=== PATIENT | female | born 1935 | race Caucasian/White ===

== ENCOUNTER 2016-11-30 21:27 | Emergency (ER) | payer MEDICARE, BC ==
[2016-11-30] MEDS ORDERED: Acetaminophen/oxyCODONE 325-5 MG Tab PO ONE ×2 (21:43→21:48)
--- NOTE | 2016-11-30 21:58 | EDM.PDOC ---
ED HPI GENERAL MEDICAL PROBLEM - General Chief Complaint: Upper Extremity Injury/Pain Stated Complaint: PAIN RT WRIST Time Seen by Provider: 11/30/16 21:40 Source of Information: Reports: Patient History Limitations: Reports: No Limitations - History of Present Illness INITIAL COMMENTS - FREE TEXT/NARRATIVE: 81 yo female was seen in the clinic today for an injured wrist. Her initial interpretation was that no fx was seen. She was fitted with a splint and asked to use her tramadol for pain relief. She called back later to tell them she was still in pain, but nothing stronger was given. She now presents due to this pain. Has not used any acetaminophen or ibuprofen since the injury. 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(s), Other (see below) (tramadol) - Related Data Allergies Allergy/AdvReac Type Severity Reaction Status Date / Time aspirin Allergy Cannot Verified 03/05/16 03:00 Remember levofloxacin [From Levaquin] Allergy Cannot Verified 03/05/16 03:00 Remember naproxen [From Naprosyn] Allergy Cannot Verified 03/05/16 03:00 Remember Penicillins Allergy Cannot Verified 03/05/16 03:00 Remember Home Meds: Home Meds Allopurinol [Zyloprim] 300 mg PO DAILY PRN 10/15/13 [History] Furosemide [Lasix] 40 mg PO DAILY 10/15/13 [History] Metoprolol Tartrate [Lopressor] 50 mg PO DAILY 10/15/13 [History] Polyethylene Glycol 3350 [MiraLAX] 17 gm PO DAILY PRN 08/27/14 [History] amLODIPine [Norvasc] 2.5 mg PO DAILY 08/27/14 [History] metFORMIN [Glucophage] 500 mg PO BIDMEALS 08/27/14 [History] traMADol [Ultram] 50 mg PO Q4H PRN 08/27/14 [History] Calcium Carbonate/Vitamin D3 [Oyster Shell 500-Vit D3 200 Tb] 1 tab PO BIDMEALS 03/05/16 [History] Liothyronine [Cytomel] 25 mcg PO BID@03/05/16 [History] Past Medical History HEENT History: Reports: Cataract, Impaired Vision, Sinusitis Cardiovascular History: Reports: Heart Failure, Hypertension, SOB on Exertion Respiratory History: Reports: Bronchitis, Recurrent, SOB Gastrointestinal History: Reports: Cholelithiasis Genitourinary History: Reports: Other (See Below) Other Genitourinary History: 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 Musculoskeletal History: Reports: Back Pain, Chronic, Gout, Osteoarthritis, Osteoporosis Endocrine/Metabolic History: Reports: Diabetes, Type II, Obesity/BMI 30+, Osteoporosis Hematologic History: Reports: Iron Deficiency Oncologic (Cancer) History: Reports: Renal, Thyroid Dermatologic History: Reports: Other (See Below) Other Dermatologic History: reddened rashy area to right ankle area - Infectious Disease History Infectious Disease History: Reports: Chicken Pox, Measles, Mumps - Past Surgical History HEENT Surgical History: Reports: Cataract Surgery, Tonsillectomy Musculoskeletal Surgical History: Reports: Arthroscopic Knee Oncologic Surgical History: Reports: Other (See Below) Social & Family History - Family History Cardiac: Reports: Hypertension, [place] Musculoskeletal: Reports: Arthritis, Gout Endocrine/Metabolic: Reports: Diabetes, type II Hematologic: Reports: None Oncologic: Reports: Colon, Pancreatic - Tobacco Use Smoking Status *Q: Never Smoker Second Hand Smoke Exposure: No - Caffeine Use Caffeine Use: Reports: None - Alcohol Use Days Per Week of Alcohol Use: 0 - Recreational Drug Use Recreational Drug Use: No - Living Situation & Occupation Living situation: Reports: Alone Review of Systems - Review of Systems Review Of Systems: See Below Constitutional: Reports: No Symptoms Musculoskeletal: Reports: Joint Pain (R wrist) Skin: Reports: No Symptoms Neurological: Reports: No Symptoms Psychiatric: Reports: No Symptoms ED EXAM, GENERAL - Physical Exam Exam: See Below Exam Limited By: No Limitations General Appearance: Alert, WD/WN, No Apparent Distress, Obese Ears: Normal External Exam, Hearing Grossly Normal Ear Exam: Bilateral Ear: Auricle Normal Nose: Normal Inspection Throat/Mouth: Normal Voice, No Airway Compromise Head: Atraumatic, Normocephalic Neck: Normal Inspection, Supple Respiratory/Chest: No Respiratory Distress Cardiovascular: Regular Rate, Rhythm GI/Abdominal: Soft, No Distention Extremities: Normal Inspection, Other (Thumb spica wrist splint in place on R. ) Neurological: Alert, Oriented, No Motor/Sensory Deficits Psychiatric: Normal Affect, Normal Mood Skin Exam: Warm, Dry, Intact, Normal Color, No Rash Course - Vital Signs Text/Narrative:: Percocet 1 po - Orders/Labs/Meds Meds: Medications Discontinued Medications Generic Name Dose Route Start Last Admin Trade Name Nilam PRN Reason Stop Dose Admin Oxycodone/Acetaminophen 1 tab 11/30/16 21:43 11/30/16 21:46 Percocet 325-5 Mg PO 11/30/16 21:44 1 tab ONETIME ONE Administration Departure - Departure Time of Disposition: 22:01 Disposition: Home, Self-Care 01 Condition: Fair Clinical Impression: Wrist pain, acute Qualifiers: Laterality: right Qualified Code(s): M25.531 - Pain in right wrist - Discharge Information Instructions: Wrist Sprain Referrals: Sindy Bergeron NP [Primary Care Provider] - Care Plan Goals: Percocet 1 every 4 hrs or 2 every 6 hrs as needed. Add ibuprofen 400 mg every 6 hrs with food for added relief. Elevate and use your splint at all times. Recheck with the clinic tomorrow.
[2016-11-30 22:03] VITALS: BP 139/73
== END 2016-11-30 22:10 | disposition home or self-care (01) ==
LOC: FB.ED 21:27
DX: M25.531 Pain in right wrist (principal); I11.0 Hypertensive heart disease with heart failure; I50.9 Heart failure, unspecified; M19.90 Unspecified osteoarthritis, unspecified site; M81.0 Age-related osteoporosis without current pathological fracture; E11.9 Type 2 diabetes mellitus without complications; E66.9 Obesity, unspecified; Z86.79 Personal history of other diseases of the circulatory system; Z88.1 Allergy status to other antibiotic agents; Z88.5 Allergy status to narcotic agent; Z88.0 Allergy status to penicillin; Z79.84 Long term (current) use of oral hypoglycemic drugs; Z79.899 Other long term (current) drug therapy; Z90.89 Acquired absence of other organs; Z98.49 Cataract extraction status, unspecified eye
CPT/HCPCS: 99283; A9270

== ENCOUNTER 2017-05-27 08:08 | Day surgery (SDC) | payer MEDICARE, BC ==
[2017-05-27] MEDS ORDERED: Lactated Ringers 1,000 ML IV SCH (08:15)
[2017-05-27] MEDS ORDERED: Lactated Ringers 1,000 ML IV ONE (10:30)
[2017-05-27] MEDS ORDERED: Midazolam 1 MG/ML 2 ML SDV IV ONE (10:30)
[2017-05-27] MEDS ORDERED: Lidocaine 2% 100 MG/5 ML Syringe IVPUSH ONE (10:30)
[2017-05-27] MEDS ORDERED: Propofol 200 MG/20 ML SDV IV ONE (10:30)
--- NOTE | 2017-05-27 11:54 | PCM.OPNOTE ---
- General Post-Op/Procedure Note Date of Surgery/Procedure: 05/27/17 Operative Procedure(s): egd with bx. c scope with bx Findings: gastric polyp esophagitis cecal polyps [id number] colon polyp x3, transverse colon polyp x2 Pre Op Diagnosis: anemia Post-Op Diagnosis: gastric polyp. esophagitis. cecal polyps [id number] colon polyp x3, transverse colon polyp x2 Anesthesia Technique: MAC Primary Surgeon: Adalberto Izquierdo Anesthesia Provider: Gisselle Jenkins Pathology: gastric polyp esophagitis cecal polyps [id number] colon polyp x3, transverse colon polyp x2 Complications: None Condition: Good Free Text/Narrative:: see dictation
[2017-05-27 13:40] VITALS: BP 158/48
--- NOTE | 2017-05-27 14:58 | OR ---
DATE OF OPERATION: 05/27/2017 SURGEON: Adalberto Izquierdo MD PROCEDURES PERFORMED: Upper endoscopy with cold forceps biopsy and colonoscopy with hot loop snare biopsy. PREOPERATIVE DIAGNOSIS: Anemia, iron deficiency. POSTOPERATIVE DIAGNOSES: Gastric polyp, esophagitis, cecal polyp x3, ascending colon polyps x3 and transverse colon polyps x2. INDICATIONS FOR PROCEDURE: This is an 81-year-old white female who is completely asymptomatic, but was referred with the above-mentioned complaint of anemia. She was offered and accepted an EGD as part of her workup. DESCRIPTION OF OPERATION: After an excellent IV sedation was administered, the bite block was inserted. The flexible endoscope was passed without difficulty down the patient's esophagus into the stomach. The stomach was insufflated. Scope was passed through the pylorus to the second portion of the duodenum and slowly withdrawn. The following findings were noted. Duodenum was unremarkable. In the stomach, a polyp was encountered. This was biopsied with the cold forceps biopsies and sent for permanent. Distal esophagus demonstrated esophagitis and biopsies were taken of this area. This just involved the distal 1-2 cm above the GE junction. The remainder of the esophageal exam was unremarkable. Attention was then turned to the colon. Digital rectal exam was performed. The flexible colonoscope was inserted and advanced to the cecum. The following findings were noted. The prep was good. In cecum, 3 polyps, biopsied with the loop snare using combination of cold and hot biopsies and submitted in one container. Ascending colon, 3 polyps were encountered within 2 - 3 cm of each other and these were biopsied with hot loop snare and sent for permanent, submitted in one container. Transverse colon, total of 2 polyps were encountered. This was at the proximal transverse colon. These were biopsied with the hot loop snare and submitted in one container as well. The descending colon was unremarkable. Sigmoid was unremarkable. Rectum and anus were unremarkable. The colon was deflated and the scope was removed. The patient tolerated the procedure well and was taken to recovery room in good condition. /[id number] /MODL MTDD
== END 2017-05-27 13:07 | disposition home or self-care (01) ==
LOC: FB.SDS 08:08
PROVIDERS: ATTEND Surgery
DX: D12.0 Benign neoplasm of cecum (principal); D12.2 Benign neoplasm of ascending colon; D12.3 Benign neoplasm of transverse colon; K20.9 Esophagitis, unspecified; K31.7 Polyp of stomach and duodenum; E11.22 Type 2 diabetes mellitus with diabetic chronic kidney disease; E11.622 Type 2 diabetes mellitus with other skin ulcer; I12.9 Hypertensive chronic kidney disease with stage 1 through stage 4 chronic kidney disease, or unspecified chronic kidney disease; N18.9 Chronic kidney disease, unspecified; Z88.1 Allergy status to other antibiotic agents; Z88.8 Allergy status to other drugs, medicaments and biological substances; Z88.0 Allergy status to penicillin; Z79.84 Long term (current) use of oral hypoglycemic drugs; Z79.899 Other long term (current) drug therapy; E78.5 Hyperlipidemia, unspecified; Z90.5 Acquired absence of kidney
CPT/HCPCS: 00731-QZ; 82962; 88305; 88313; 88342; J2250; J2704; J7120

== ENCOUNTER 2017-10-29 11:08 | Emergency (ER) | payer MEDICARE, BC ==
[2017-10-29] MEDS ORDERED: Acetaminophen/oxyCODONE 325-5 MG Tab PO STA (11:49)
--- NOTE | 2017-10-29 11:50 | EDM.PDOC ---
ED HPI GENERAL MEDICAL PROBLEM - General Chief Complaint: Lower Extremity Injury/Pain Stated Complaint: RT SIDE BACK PAIN Time Seen by Provider: 10/29/17 11:10 Source of Information: Reports: Patient, Family History Limitations: Reports: Physical Impairment - History of Present Illness INITIAL COMMENTS - FREE TEXT/NARRATIVE: 82 y.o.w. f came with her sister in [place] to the [place] due to low back pain, no trauma. Pt was seen in [place] for same and was told, surgery would not benefit her. Pt came today because the pain got worse. She denied stool or urine incontinence. Pt lives by herself, but can so far manage it to take care for herself. Pt took tylenol without help. Pt did, not take her meds today. No N/V/ D or dizziness or any other acute medical issues. BP 182/71 RR 20 Pulse ox 100 % HR 62 temp 36.8 Onset Date: 09/29/17 Onset Time: 07:00 Duration: Day(s):, Getting Worse, Intermittent Location: Reports: Back Quality: Reports: Burning, Dull, Pressure, Same as Previous Episode, Throbbing Severity: Moderate Improves with: Reports: Cold Therapy, Medication Worsens with: Reports: Movement Context: Reports: Other (chronic low back pain) Associated Symptoms: Reports: No Other Symptoms Right Hip Pain Score (Numeric/FACES): 6 - Related Data Allergies Allergy/AdvReac Type Severity Reaction Status Date / Time aspirin Allergy Cannot Verified 10/29/17 11:16 Remember levofloxacin [From Levaquin] Allergy Cannot Verified 10/29/17 11:16 Remember naproxen [From Naprosyn] Allergy Cannot Verified 10/29/17 11:16 Remember Penicillins Allergy Cannot Verified 10/29/17 11:16 Remember Home Meds: Home Meds Allopurinol [Zyloprim] 300 mg PO DAILY 10/15/13 [History] Furosemide [Lasix] 40 mg PO DAILY 10/15/13 [History] Metoprolol Tartrate [Lopressor] 50 mg PO DAILY 10/15/13 [History] amLODIPine [Norvasc] 2.5 mg PO DAILY 08/27/14 [History] metFORMIN [Glucophage] 500 mg PO BIDMEALS 08/27/14 [History] Calcium Carbonate/Vitamin D3 [Oyster Shell 500-Vit D3 200 Tb] 1 tab PO DAILY 03/10 [History] Ferrous Sulfate 325 mg PO BID 05/26/17 [History] Levothyroxine 150 mcg PO ASDIRECTED 05/26/17 [History] Levothyroxine 300 mcg PO NG 05/26/17 [History] Acetaminophen/oxyCODONE [Percocet 325-5 MG] 1 each PO Q6HR PRN #16 tab 10/29/17 [Rx] Past Medical History HEENT History: Reports: Cataract, Impaired Vision, Sinusitis, Other (See Below) Other HEENT History: NASAL POLYPS Cardiovascular History: Reports: Heart Failure, High Cholesterol, Hypertension, SOB on Exertion, Other (See Below) Other Cardiovascular History: VARICOSE VEINS, LYMPHEDEMA, DV THROMBOEMBOLISM, VEIN LIGATION STRIPPING OF RIGHT LASER BILATERAL Respiratory History: Reports: Bronchitis, Recurrent, SOB Gastrointestinal History: Reports: Cholelithiasis, Gastritis, Other (See Below) Other Gastrointestinal History: GASTRIC ULCER Genitourinary History: Reports: Renal Disease, Other (See Below) Other Genitourinary History: 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 Musculoskeletal History: Reports: Back Pain, Chronic, Fracture, Gout, Osteoarthritis, Osteoporosis Other Musculoskeletal History: UNCSPECIFIED CLOSED FX OF LEFT FOREARM Neurological History: Reports: None Endocrine/Metabolic History: Reports: Diabetes, Type II, Obesity/BMI 30+, Osteoporosis Hematologic History: Reports: Iron Deficiency Oncologic (Cancer) History: Reports: Renal, Thyroid Dermatologic History: Reports: Other (See Below) Other Dermatologic History: reddened rashy area to right ankle area - Infectious Disease History Infectious Disease History: Reports: Chicken Pox, Influenza, Measles, Mumps, Rubella - Past Surgical History HEENT Surgical History: Reports: Cataract Surgery, Tonsillectomy GI Surgical History: Reports: Appendectomy, Cholecystectomy, Colonoscopy, Hernia Repair/Other Other GI Surgeries/Procedures: UMBILICAL HERNIORRAPHY Female Surgical History: Reports: Hysterectomy, Nephrectomy, Oophorectomy Other Female Surgeries/Procedures: LEFT LAP NEPHRECTOMY 2014 Endocrine Surgical History: Reports: Parathyroidectomy Musculoskeletal Surgical History: Reports: Arthroscopic Knee Oncologic Surgical History: Reports: Other (See Below) Other Oncologic Surgeries/Procedures: left kidney and thyroid Dermatological Surgical History: Reports: None Social & Family History - Family History Family Medical History: Noncontributory Cardiac: Reports: Hypertension, [place] Musculoskeletal: Reports: Arthritis, Gout Endocrine/Metabolic: Reports: Diabetes, type II Hematologic: Reports: None Oncologic: Reports: Colon, Pancreatic - Tobacco Use Smoking Status *Q: Never Smoker Second Hand Smoke Exposure: No - Caffeine Use Caffeine Use: Reports: Soda Caffeine Use Comment: Occasional pop - Recreational Drug Use Recreational Drug Use: No - Living Situation & Occupation Living situation: Reports: Alone Review of Systems - Review of Systems Review Of Systems: See Below Constitutional: Reports: No Symptoms Eyes: Reports: No Symptoms Ears: Reports: No Symptoms Nose: Reports: No Symptoms Mouth/Throat: Reports: No Symptoms Respiratory: Reports: No Symptoms Cardiovascular: Reports: No Symptoms GI/Abdominal: Reports: No Symptoms Genitourinary: Reports: No Symptoms Musculoskeletal: Reports: Back Pain Skin: Reports: No Symptoms Neurological: Reports: No Symptoms Psychiatric: Reports: No Symptoms ED EXAM, GENERAL - Physical Exam Exam: See Below Exam Limited By: Physical Impairment General Appearance: Alert, Mild Distress, Obese (morbid) Eye Exam: Bilateral Eye: Normal Inspection Ears: Normal External Exam Ear Exam: Bilateral Ear: Auricle Normal Nose: Normal Inspection, Normal Mucosa Throat/Mouth: Normal Inspection, Normal Lips, Normal Voice, No Airway Compromise Head: Atraumatic, Normocephalic Neck: Normal Inspection, Supple, Non-Tender, Full Range of Motion Respiratory/Chest: No Respiratory Distress Cardiovascular: Normal Peripheral Pulses, Regular Rate, Rhythm Peripheral Pulses: 1+: Carotid (R) GI/Abdominal: Normal Bowel Sounds, Soft, Non-Tender, No Organomegaly, No Mass (Female) Exam: Deferred Rectal (Female) Exam: Deferred Back Exam: Normal Inspection, Decreased Range of Motion Extremities: Normal Inspection, Normal Range of Motion Neurological: Alert, Oriented, CN II-XII Intact, Normal Cognition, Abnormal Gait (due to low back pain) Psychiatric: Normal Affect, Normal Mood Skin Exam: Warm, Dry, Intact, Normal Color, No Rash Lymphatic: No Adenopathy Course - Vital Signs Text/Narrative:: 82 y.o.w. f came with her sister in [facility] to the ed due to low back pain, no trauma. Pt was seen in [place] for same and was told, surgery would not benefit her. Pt came today because the pain got worse. She denied stool or urine incontinence. Pt lives by herself, but can so far manage it to take care for herself. Pt took tylenol without help. Pt did, not take her meds today. No N/V/ D or dizziness or any other acute medical issues. BP 182/71 RR 20 Pulse ox 100 % HR 62 temp 36.8 PE: Morbid obes 82 y.o.w.f with low back pain Imaging: Multilevel spondylosis Impression: Multilevel spondylosis, Chronic low back pain, HTN, Noncompliance with meds. Tx: Ice, Percocet, clonidine Reexam: Pain improved, BP was 155/84 on D/C Plan: D/C with instructions Last Recorded V/S: Last Vital Signs Temp 36.6 C 10/29/17 15:17 Pulse 62 10/29/17 15:45 Resp 18 10/29/17 15:45 BP 155/67 H 10/29/17 15:45 Pulse Ox 100 10/29/17 15:45 - Orders/Labs/Meds Orders: Active Orders 24 hr Category Date Time Status Cooling Warming Measures [RC] ASDIRECTED Care 10/29/17 11:45 Active Hip Min 2V or 3V w Pelvis Rt [CR] Stat Exams 10/29/17 12:11 Taken Lumbar Spine 2 or 3V [CR] Stat Exams 10/29/17 12:11 Taken Lumbar Spine wo Cont [CT] Stat Exams 10/29/17 12:46 Taken Ice Bag [Ice Therapy] [OM.PC] Routine Oth 10/29/17 11:45 Ordered Meds: Medications Discontinued Medications Generic Name Dose Route Start Last Admin Trade Name Freq PRN Reason Stop Dose Admin Clonidine HCl 0.1 mg 10/29/17 15:28 10/29/17 15:32 Catapres PO 10/29/17 15:29 0.1 mg ONETIME ONE Administration Oxycodone/Acetaminophen 1 tab 10/29/17 11:49 10/29/17 12:39 Percocet 325-5 Mg PO 10/29/17 11:50 1 tab ONETIME STA Administration Departure - Departure Time of Disposition: 15:04 Disposition: Home, Self-Care 01 Condition: Good Clinical Impression: Back pain at L4-L5 level Spondylosis Qualifiers: Spinal osteoarthritis complication: without myelopathy or radiculopathy - Discharge Information Prescriptions: Acetaminophen/oxyCODONE [Percocet 325-5 MG] 1 each PO Q6HR PRN #16 tab PRN Reason: for severe pain only Instructions: Hip Pain, Acetaminophen; Oxycodone tablets Referrals: Sindy Bergeron NP [Primary Care Provider] - Eladio Argueta DO [Physician] - Forms: ED Department Discharge Additional Instructions: Please apply ice to lower back, please take the pain meds as recommended, please f/u with Dr. Argueta this week, please come back if your symptoms get worse acutely - My Orders Last 24 Hours: My Active Orders 10/29/17 11:45 Cooling Warming Measures [RC] ASDIRECTED Ice Bag [Ice Therapy] [OM.PC] Routine 10/29/17 12:11 Hip Min 2V or 3V w Pelvis Rt [CR] Stat Lumbar Spine 2 or 3V [CR] Stat 10/29/17 12:46 Lumbar Spine wo Cont [CT] Stat - Assessment/Plan Last 24 Hours: My Active Orders 10/29/17 11:45 Cooling Warming Measures [RC] ASDIRECTED Ice Bag [Ice Therapy] [OM.PC] Routine 10/29/17 12:11 Hip Min 2V or 3V w Pelvis Rt [CR] Stat Lumbar Spine 2 or 3V [CR] Stat 10/29/17 12:46 Lumbar Spine wo Cont [CT] Stat
[2017-10-29] MEDS ORDERED: Acetaminophen/oxyCODONE 325-5 MG Tab PO ONE (15:11)
[2017-10-29] MEDS ORDERED: cloNIDine 0.1 MG Tab PO ONE (15:28)
[2017-10-29 15:51] VITALS: BP 155/67
--- NOTE | 2017-10-31 13:34 | CR ---
INDICATION: Low back pain radiating to right hip. PELVIS WITH RIGHT HIP: Frontal view of the pelvis with frontal and lateral views of the right hip were obtained 10/29/2017 and revealed degenerative changes at the sacroiliac joints. The hip joints show only minimal degenerative changes with the joint spaces fairly well preserved and symmetrical bilaterally. No evidence of a fracture or dislocation was identified. IMPRESSION: 1. Very minimal osteoarthritis hip joints bilaterally. 2. Osteoarthritis sacroiliac joints. MTDD
--- NOTE | 2017-10-31 13:39 | CR ---
INDICATION: Low back pain. 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 Demineralization is noted, compatible with osteoporosis. Degenerative disk disease with narrowing of the disk space is suggested at L3-4 , disk disease suggested at L4-5 with grade 1 anterolisthesis at that level. Disk disease is also suggested due to narrowing at the L4-5 level. Hypertrophic degenerative changes are noted in the thoracolumbar spine and to the level of L2 anteriorly off vertebral bodies. Disk disease is also likely at L1-2. A definite acute fracture or dislocation was not seen. IMPRESSION: Degenerative changes, disk disease, scoliosis, probable osteoporosis. MTDD
== END 2017-10-29 15:50 | disposition home or self-care (01) ==
LOC: FB.ED 11:08
DX: M47.816 Spondylosis without myelopathy or radiculopathy, lumbar region (principal); I10 Essential (primary) hypertension; E66.9 Obesity, unspecified; E11.9 Type 2 diabetes mellitus without complications; M47.9 Spondylosis, unspecified; Z88.8 Allergy status to other drugs, medicaments and biological substances; Z88.0 Allergy status to penicillin; Z79.899 Other long term (current) drug therapy; Z91.14 Patient's other noncompliance with medication regimen
CPT/HCPCS: 72100; 72131; 73502; 99284; A9270

== ENCOUNTER 2018-08-23 08:47 | Emergency (ER) | payer MEDICARE, BC ==
--- NOTE | 2018-08-23 09:16 | EDM.PDOC ---
ED HPI GENERAL MEDICAL PROBLEM - General Chief Complaint: Neck Problem Stated Complaint: PAIN R HEAD Time Seen by Provider: 08/23/18 08:47 Source of Information: Reports: Patient, Family History Limitations: Reports: Physical Impairment - History of Present Illness INITIAL COMMENTS - FREE TEXT/NARRATIVE: 82 y.o.w.f with a H/O Spondylosis, HTN, CRI, came to the ed due to acute neck pain radiating to her right mastoid after she got this morning. She denied trauma. It hurs to move her neck to the left or right side. She c/o pain at the area behind her right ear. Denies any hearing issue, however. No H/A. No N/V/D or dizziness, no other acute medical issues. BP 167/84 RR 18 Pulse ox 95% Pulse 78 Temp 36.4 Onset Date: 08/23/18 Onset Time: 06:00 Duration: Hour(s):, Intermittent, Waxing/Waning Location: Reports: Neck Quality: Reports: Ache, Dull, Pressure Severity: Moderate Improves with: Reports: Rest Worsens with: Reports: Movement Context: Reports: Other Associated Symptoms: Reports: No Other Symptoms (acte med issues) - Related Data Allergies Allergy/AdvReac Type Severity Reaction Status Date / Time aspirin Allergy Cannot Verified 08/23/18 09:00 Remember levofloxacin [From Levaquin] Allergy Cannot Verified 08/23/18 09:00 Remember naproxen [From Naprosyn] Allergy Cannot Verified 08/23/18 09:00 Remember Penicillins Allergy Cannot Verified 08/23/18 09:00 Remember Home Meds: Home Meds Allopurinol [Zyloprim] 300 mg PO DAILY PRN 10/15/13 [History] Furosemide [Lasix] 40 mg PO DAILY 10/15/13 [History] Metoprolol Tartrate [Lopressor] 50 mg PO DAILY 10/15/13 [History] amLODIPine [Norvasc] 2.5 mg PO DAILY 08/27/14 [History] metFORMIN [Glucophage] 500 mg PO BIDMEALS 08/27/14 [History] Calcium Carbonate/Vitamin D3 [Oyster Shell 500-Vit D3 200 Tb] 1 tab PO BEDTIME 03/05/16 [History] Levothyroxine 150 mcg PO ASDIRECTED 05/26/17 [History] Levothyroxine 300 mcg PO NG 05/26/17 [History] Acetaminophen/HYDROcodone [Satsuma 325-5 MG] 1 tab PO Q4H PRN #4 tab 08/23/18 [Rx] Vit A/C/E AC/Znox/Cupric Oxide [Eye Vitamin-Minerals Tablet] 1 tab PO DAILY 05/13 [History] Past Medical History HEENT History: Reports: Cataract, Impaired Vision, Sinusitis, Other (See Below) Other HEENT History: NASAL POLYPS Cardiovascular History: Reports: Heart Failure, High Cholesterol, Hypertension, SOB on Exertion, Other (See Below) Other Cardiovascular History: VARICOSE VEINS, LYMPHEDEMA, DV THROMBOEMBOLISM, VEIN LIGATION STRIPPING OF RIGHT LASER BILATERAL Respiratory History: Reports: Bronchitis, Recurrent, SOB Gastrointestinal History: Reports: Cholelithiasis, Gastritis, Other (See Below) Other Gastrointestinal History: GASTRIC ULCER Genitourinary History: Reports: Renal Disease, Other (See Below) Other Genitourinary History: 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 Musculoskeletal History: Reports: Back Pain, Chronic, Fracture, Gout, Osteoarthritis, Osteoporosis Other Musculoskeletal History: UNCSPECIFIED CLOSED FX OF LEFT FOREARM Neurological History: Reports: None Endocrine/Metabolic History: Reports: Diabetes, Type II, Obesity/BMI 30+, Osteoporosis Hematologic History: Reports: Iron Deficiency Oncologic (Cancer) History: Reports: Renal, Thyroid Dermatologic History: Reports: Other (See Below) Other Dermatologic History: reddened rashy area to right ankle area - Infectious Disease History Infectious Disease History: Reports: Chicken Pox, Influenza, Measles, Mumps, Rubella - Past Surgical History HEENT Surgical History: Reports: Cataract Surgery, Tonsillectomy GI Surgical History: Reports: Appendectomy, Cholecystectomy, Colonoscopy, Hernia Repair/Other Other GI Surgeries/Procedures: UMBILICAL HERNIORRAPHY Female Surgical History: Reports: Hysterectomy, Nephrectomy, Oophorectomy Other Female Surgeries/Procedures: LEFT LAP NEPHRECTOMY 2014 Endocrine Surgical History: Reports: Parathyroidectomy Musculoskeletal Surgical History: Reports: Arthroscopic Knee Oncologic Surgical History: Reports: Other (See Below) Other Oncologic Surgeries/Procedures: left kidney and thyroid Dermatological Surgical History: Reports: None Social & Family History - Family History Family Medical History: Noncontributory Cardiac: Reports: Hypertension, [place] Musculoskeletal: Reports: Arthritis, Gout Endocrine/Metabolic: Reports: Diabetes, type II Hematologic: Reports: None Oncologic: Reports: Colon, Pancreatic - Caffeine Use Caffeine Use: Reports: Soda Caffeine Use Comment: Occasional pop - Living Situation & Occupation Living situation: Reports: Alone ED ROS GENERAL - Review of Systems Review Of Systems: See Below Constitutional: Reports: No Symptoms HEENT: Reports: No Symptoms Respiratory: Reports: No Symptoms Cardiovascular: Reports: No Symptoms Endocrine: Reports: No Symptoms GI/Abdominal: Reports: No Symptoms : Reports: No Symptoms Musculoskeletal: Reports: Neck Pain Skin: Reports: No Symptoms Neurological: Reports: No Symptoms Psychiatric: Reports: No Symptoms Hematologic/Lymphatic: Reports: No Symptoms Immunologic: Reports: No Symptoms ED EXAM, UPPER BACK/NECK PAIN - Physical Exam Exam: See Below Exam Limited By: Physical Impairment General Appearance: Alert, WD/WN, Obese Eye Exam: Bilateral Eye: Normal Inspection Ears Exam: Normal External Exam, Normal Canal, Other (right mastoid tenderness) Nose Exam: Normal Inspection, Normal Mucousa, No Blood Throat/Mouth Exam: Normal Inspection, Normal Lips, Normal Voice, No Airway Compromise Head Exam: Atraumatic, Normocephalic Neck Exam: Non-Tender, Full Range of Motion, Normal Alignment, Normal Inspection Cardiovascular/Respiratory: Regular Rate, Rhythm GI/Abdominal: Normal Bowel Sounds, Soft, Non-Tender, No Organomegaly, Pelvis Stable (Female) Exam: Deferred Rectal (Female) Exam: Deferred Back Exam: Normal Inspection, Full Range of Motion Extremities: Normal Inspection, Normal Range of Motion, Non-Tender, No Pedal Edema, Normal Capillary Refill 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 She denied trauma. It hurs to move her neck to the left or right side. She c/o pain at the area behind her right ear. Denies any hearing issue, however. No H/A. No N/V/D or dizziness, no other acute medical issues. BP 167/84 RR 18 Pulse ox 95% Pulse 78 Temp 36.4 PE: WNWD W F with neck painand pain at her right mastoid. Imaging: CT neck: Osteoarthritis and disc disease of neck, Mastoid nl. MRI was recommended: MRI of neck: Osteoarthritis and disc disease of neck, no radiculopathy, no change since 2011 Impression: Osteoarthritis and disc disease of neck, Chronic let leg edema, HTN. Tx: Soft collar to neck, ICE and Satsuma. Reexam: Improved, Pt was able to move her neck better 70% improved compared to her baseline. Plan: D/C with instructions Last Recorded V/S: Last Vital Signs Temp 36.4 C 08/23/18 08:47 Pulse 51 L 08/23/18 13:30 Resp 18 08/23/18 13:30 BP 127/61 08/23/18 13:30 Pulse Ox 96 08/23/18 13:30 - Orders/Labs/Meds Orders: Active Orders 24 hr Category Date Time Status Cervical Spine Comp wo Cont [MR] Stat Exams 08/23/18 11:29 Taken Meds: Medications Discontinued Medications Generic Name Dose Route Start Last Admin Trade Name Freq PRN Reason Stop Dose Admin Hydrocodone Bitart/Acetaminophen 1 tab 08/23/18 09:08 08/23/18 09:17 Satsuma 325-5 Mg PO 08/23/18 09:09 1 tab ONETIME ONE Administration Lorazepam 0.5 mg 08/23/18 10:59 08/23/18 11:05 Ativan PO 08/23/18 11:00 0.5 mg ONETIME ONE Administration Departure - Departure Time of Disposition: 12:55 Disposition: Home, Self-Care 01 Condition: Good Clinical Impression: 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 Please f/u, come back if your symptoms get worse acutely - My Orders Last 24 Hours: My Active Orders 08/23/18 11:29 Cervical Spine Comp wo Cont [MR] Stat - Assessment/Plan Last 24 Hours: My Active Orders 08/23/18 11:29 Cervical Spine Comp wo Cont [MR] Stat
[2018-08-23] MEDS: Acetaminophen/HYDROcodone 325-5 MG Tab PO ONE (09:17)
--- NOTE | 2018-08-23 10:53 | CT ---
INDICATION: Neck and right mastoid tenderness. CT CERVICAL SPINE WITHOUT CONTRAST: Spiral 2.5 mm axial sections were obtained through the neck without contrast with sagittal and coronal reconstructions. This examination is optimized for bony structures. Total exam DLP = 399.86 mGy- cm. Degenerative changes and disk disease are noted at C4-5, C5-6, C6-7, most prominent at C5-6, C6-7 but with a minimal anterolisthesis at C4-5 also noted. There also is an anterolisthesis at C3-4 with question of minimal disk disease - narrowing of that disk space suggested at that level. The neural foramina appear to be patent. Very slight reversal of the normal cervical lordosis is noted centered at the C5 level. Prevertebral space is somewhat prominent but likely within normal limits. Hypertrophic degenerative changes are noted at the atlantoodontoid joint with fragmentation of the odontoid, which could be on the basis of an ununited accessory ossification center. There is moderate narrowing of the atlantoodontoid joint space. In addition to a small bony density at the superior posterior aspect of the odontoid, there is a small bony density along the anterior right lateral aspect of the upper odontoid within the joint space, which may represent a joint mouse, possibly from a chip fracture fragment from previous injury. It does not appear to be acute, as it is corticated. No definite acute fracture was identified. No evidence of spinal stenosis was seen. The apical lung included on the study showed nodular appearing densities, which may be fibrotic in nature but were not fully included, and neoplasia is difficult to exclude. The mastoid air cells appear to be well-aerated. IAC's appear to be fairly symmetrical. Mild cervical lymphadenopathy is noted, which is nonspecific. Evidence of surgery is noted at the level of the thyroid for thyroidectomy. IMPRESSION: 1. Degenerative changes and disk disease, as noted above in the cervical spine. 2. Cervical lymphadenopathy of mild degree, which is nonspecific. 3. Post thyroidectomy. 4. No definite evidence of mastoiditis. 5. 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 [facility]
[2018-08-23] MEDS: LORazepam 0.5 MG Tab PO ONE (11:05)
[2018-08-23 13:48] VITALS: BP 127/61
== END 2018-08-23 13:35 | disposition home or self-care (01) ==
LOC: FB.ED 08:47
DX: M47.812 Spondylosis without myelopathy or radiculopathy, cervical region (principal); M50.90 Cervical disc disorder, unspecified, unspecified cervical region; I11.0 Hypertensive heart disease with heart failure; I50.9 Heart failure, unspecified; M10.9 Gout, unspecified; M19.90 Unspecified osteoarthritis, unspecified site; E11.9 Type 2 diabetes mellitus without complications; E66.9 Obesity, unspecified; Z98.49 Cataract extraction status, unspecified eye; Z98.890 Other specified postprocedural states; Z88.0 Allergy status to penicillin; Z88.1 Allergy status to other antibiotic agents; Z79.84 Long term (current) use of oral hypoglycemic drugs; Z79.899 Other long term (current) drug therapy; Z90.49 Acquired absence of other specified parts of digestive tract; Z90.710 Acquired absence of both cervix and uterus; Z88.6 Allergy status to analgesic agent
CPT/HCPCS: 72125; 72141; 99283-25; A9270-GY

== ENCOUNTER 2021-07-10 21:18 | Inpatient (IN) | payer MEDICARE, BC ==
[2021-07-10] MEDS ORDERED: Sodium Chloride 0.9% 500 ML IV ONE (22:37)
[2021-07-10] MEDS: cefTRIAXone 1 GM in Sodium Chloride 0.9% 50 ML IV SCH (23:05)
[2021-07-10] MEDS ORDERED: Allopurinol 300 MG Tab PO PRN (23:20)
[2021-07-10] MEDS ORDERED: Loperamide 2 MG Cap PO PRN (23:20)
[2021-07-10] MEDS: Enoxaparin 30 MG/0.3 ML Syringe SUBCUT SCH (23:22)
[2021-07-10] MEDS ORDERED: Levothyroxine 150 MCG Tab PO SCH (23:30)
[2021-07-10] MEDS ORDERED: Bisacodyl 5 MG Tab PO SCH (23:30)
[2021-07-11] MEDS: Sodium Chloride 0.9% 1,000 ML IV SCH ×3 (00:03→21:08)
[2021-07-11] MEDS: metFORMIN 500 MG Tab PO SCH ×2 (07:43→17:01)
[2021-07-11] MEDS: Acetaminophen/HYDROcodone 325-5 MG Tab PO PRN ×2 (07:43→21:19)
[2021-07-11] MEDS: Furosemide 40 MG Tab PO SCH (07:59)
[2021-07-11] MEDS: Gabapentin 300 MG Cap PO SCH ×2 (07:59→21:09)
[2021-07-11] MEDS: Metoprolol Tartrate 50 MG Tab PO SCH (07:59)
[2021-07-11] MEDS: Non-Formulary Medication 1 Each (Ferrous Gluconate [Ferrous Gluconate] 324 MG Tablet) PO SCH ×3 (09:34→21:20)
[2021-07-11] MEDS ORDERED: Enoxaparin 40 MG/0.4 ML Syringe ONE (23:28)
[2021-07-11] MEDS: cefTRIAXone 1 GM in Sodium Chloride 0.9% 50 ML IV SCH (23:53)
[2021-07-12] MEDS: Enoxaparin 30 MG/0.3 ML Syringe SUBCUT SCH (00:35)
[2021-07-12] MEDS: Enoxaparin 40 MG/0.4 ML Syringe SUBCUT SCH ×2 (02:20→20:23)
[2021-07-12] MEDS: Levothyroxine 150 MCG Tab PO SCH (06:22)
[2021-07-12] MEDS: Sodium Chloride 0.9% 1,000 ML IV SCH (07:27)
[2021-07-12] MEDS: metFORMIN 500 MG Tab PO SCH ×2 (08:38→17:00)
[2021-07-12] MEDS: Gabapentin 300 MG Cap PO SCH ×2 (08:39→20:23)
[2021-07-12] MEDS: Acetaminophen 500 MG Tab PO PRN ×3 (08:39→23:56)
[2021-07-12] MEDS: Furosemide 40 MG Tab PO SCH (08:39)
[2021-07-12] MEDS: Non-Formulary Medication 1 Each (Ferrous Gluconate [Ferrous Gluconate] 324 MG Tablet) PO SCH ×3 (08:40→20:23)
[2021-07-12] MEDS: Metoprolol Tartrate 50 MG Tab PO SCH (08:45)
[2021-07-12] MEDS ORDERED: Bisacodyl 5 MG Tab PO PRN (08:46)
[2021-07-12] MEDS ORDERED: Loperamide 2 MG Cap PO PRN (08:46)
[2021-07-12] MEDS: Allopurinol 300 MG Tab PO SCH (09:03)
[2021-07-12] MEDS ORDERED: Enoxaparin 40 MG/0.4 ML Syringe SUBCUT SCH (21:00)
[2021-07-12] MEDS ORDERED: Sodium Chloride 0.9% 10 ML Syringe FLUSH PRN (22:54)
[2021-07-12] MEDS ORDERED: cefTRIAXone 1 GM Vial IVPUSH SCH (23:00)
[2021-07-13] MEDS: Levothyroxine 150 MCG Tab PO SCH (05:19)
[2021-07-13] MEDS ORDERED: metFORMIN 500 MG Tab PO SCH (09:00)
[2021-07-13] MEDS ORDERED: amLODIPine 2.5 MG Tab PO SCH (09:00)
[2021-07-13] MEDS ORDERED: Ferrous Sulfate 325 MG Tab PO SCH ×5 (09:00→12:00)
[2021-07-13] MEDS: metFORMIN 500 MG Tab PO SCH (09:00)
[2021-07-13] MEDS: Furosemide 40 MG Tab PO SCH (09:24)
[2021-07-13] MEDS: Metoprolol Tartrate 50 MG Tab PO SCH (09:24)
[2021-07-13] MEDS: Allopurinol 300 MG Tab PO SCH (09:24)
[2021-07-13] MEDS: Gabapentin 300 MG Cap PO SCH (09:31)
[2021-07-13] MEDS: Acetaminophen 500 MG Tab PO PRN (11:37)
[2021-07-13 13:35] VITALS: BP 152/70; PULSE 62
[2021-07-13] MEDS ORDERED: Cefdinir 300 MG Cap PO SCH (21:00)
== END 2021-07-13 13:45 | disposition swing bed (61) | DRG 558 ==
LOC: FB.ED 21:18 → FB.MS 22:57 → UNDOADMIN 23:42 → UNDODISIN 07-13 13:45
PROVIDERS: ADMIT Family Medicine; ATTEND Family Medicine
DX: M62.82 Rhabdomyolysis (principal); R53.1 Weakness; W19.XXXA Unspecified fall, initial encounter; N30.00 Acute cystitis without hematuria; M19.012 Primary osteoarthritis, left shoulder; M47.812 Spondylosis without myelopathy or radiculopathy, cervical region; M54.6 Pain in thoracic spine; G89.29 Other chronic pain; M10.9 Gout, unspecified; I87.2 Venous insufficiency (chronic) (peripheral); Z66 Do not resuscitate; Z20.822 Contact with and (suspected) exposure to COVID-19; M81.0 Age-related osteoporosis without current pathological fracture; E11.9 Type 2 diabetes mellitus without complications; E61.1 Iron deficiency; E66.9 Obesity, unspecified; I50.9 Heart failure, unspecified; I11.0 Hypertensive heart disease with heart failure; H54.7 Unspecified visual loss; E78.00 Pure hypercholesterolemia, unspecified; N28.9 Disorder of kidney and ureter, unspecified; M19.90 Unspecified osteoarthritis, unspecified site; Z88.1 Allergy status to other antibiotic agents; Z88.0 Allergy status to penicillin; Z88.8 Allergy status to other drugs, medicaments and biological substances; Z79.890 Hormone replacement therapy; Z79.899 Other long term (current) drug therapy; Z90.710 Acquired absence of both cervix and uterus; Z85.850 Personal history of malignant neoplasm of thyroid; Z85.528 Personal history of other malignant neoplasm of kidney; Z79.84 Long term (current) use of oral hypoglycemic drugs; Z68.38 Body mass index [BMI] 38.0-38.9, adult
CPT/HCPCS: 36415; 51702; 73030-LT; 80048; 80053; 81001; 82550; 82947; 85025; 87040; 87086; 87088; 87186; 97161-GP; 97167-GO; 97530-GP; 99283; 99284-25; A9270-GY; J0696; J1650; J3490; J7030; J7040; U0002

== ENCOUNTER 2021-07-13 13:45 | Inpatient (IN) | payer MEDICARE, BC ==
[2021-07-13] MEDS ORDERED: Loperamide 2 MG Cap PO PRN (14:33)
[2021-07-13] MEDS ORDERED: Furosemide 20 MG Tab PO SCH (15:00)
[2021-07-13] MEDS: metFORMIN 500 MG Tab PO SCH (17:16)
[2021-07-13] MEDS: Ferrous Sulfate 325 MG Tab PO SCH (17:16)
[2021-07-13] MEDS: Cefdinir 300 MG Cap PO SCH (20:04)
[2021-07-13] MEDS: Gabapentin 300 MG Cap PO SCH (20:05)
[2021-07-13] MEDS: Docusate Sodium 100 MG Cap PO PRN (21:31)
[2021-07-14] MEDS: Levothyroxine 150 MCG Tab PO SCH (05:14)
[2021-07-14] MEDS ORDERED: Furosemide 40 MG Tab PO SCH (09:00)
[2021-07-14] MEDS: Furosemide 40 MG Tab PO SCH (09:12)
[2021-07-14] MEDS: amLODIPine 2.5 MG Tab PO SCH (09:12)
[2021-07-14] MEDS: Metoprolol Tartrate 50 MG Tab PO SCH (09:13)
[2021-07-14] MEDS: Allopurinol 300 MG Tab PO SCH (09:13)
[2021-07-14] MEDS: metFORMIN 500 MG Tab PO SCH ×2 (09:13→17:25)
[2021-07-14] MEDS: Cefdinir 300 MG Cap PO SCH ×2 (09:13→20:02)
[2021-07-14] MEDS: Gabapentin 300 MG Cap PO SCH ×2 (09:26→20:01)
[2021-07-14] MEDS: Ferrous Sulfate 325 MG Tab PO SCH ×2 (11:30→17:26)
[2021-07-14] MEDS: Furosemide 20 MG Tab PO SCH (11:30)
[2021-07-14] MEDS: Acetaminophen 500 MG Tab PO PRN ×2 (11:30→19:46)
[2021-07-14] MEDS: Melatonin 3 MG Tab PO PRN (23:42)
[2021-07-15] MEDS ORDERED: Acetaminophen/HYDROcodone 325-5 MG Tab PO ONE (00:02)
[2021-07-15] MEDS: Acetaminophen 500 MG Tab PO PRN (04:24)
[2021-07-15] MEDS: Levothyroxine 150 MCG Tab PO SCH (06:22)
[2021-07-15] MEDS: Polyethylene Glycol 3350 Powder 17 GM Packet PO PRN (07:58)
[2021-07-15] MEDS: metFORMIN 500 MG Tab PO SCH (07:58)
[2021-07-15] MEDS: Furosemide 40 MG Tab PO SCH (07:59)
[2021-07-15] MEDS: Cefdinir 300 MG Cap PO SCH (07:59)
[2021-07-15] MEDS: Allopurinol 300 MG Tab PO SCH (07:59)
[2021-07-15] MEDS: Gabapentin 300 MG Cap PO SCH ×2 (07:59→20:15)
[2021-07-15] MEDS: Metoprolol Tartrate 50 MG Tab PO SCH (08:07)
[2021-07-15] MEDS: amLODIPine 2.5 MG Tab PO SCH (08:10)
[2021-07-15] MEDS: amLODIPine 5 MG Tab PO SCH (08:23)
[2021-07-15] MEDS: Acetaminophen 325 MG Tab PO PRN ×2 (11:10→20:20)
[2021-07-15] MEDS: Furosemide 20 MG Tab PO SCH (11:11)
[2021-07-15] MEDS: Ferrous Sulfate 325 MG Tab PO SCH ×2 (11:11→16:59)
[2021-07-15] MEDS: traMADol 50 MG Tab PO PRN ×2 (16:46→22:35)
[2021-07-15] MEDS: metFORMIN 1,000 MG Tab PO SCH (16:59)
[2021-07-15] MEDS: Melatonin 3 MG Tab PO PRN (20:20)
[2021-07-16] MEDS: traMADol 50 MG Tab PO PRN ×2 (05:02→21:57)
[2021-07-16] MEDS: Levothyroxine 150 MCG Tab PO SCH (05:02)
[2021-07-16] MEDS: metFORMIN 1,000 MG Tab PO SCH ×2 (07:59→17:26)
[2021-07-16] MEDS: Gabapentin 300 MG Cap PO SCH ×2 (07:59→20:18)
[2021-07-16] MEDS: Furosemide 40 MG Tab PO SCH (08:00)
[2021-07-16] MEDS: Allopurinol 300 MG Tab PO SCH (08:00)
[2021-07-16] MEDS: Metoprolol Tartrate 50 MG Tab PO SCH (08:00)
[2021-07-16] MEDS: amLODIPine 5 MG Tab PO SCH (08:00)
[2021-07-16] MEDS: Polyethylene Glycol 3350 Powder 17 GM Packet PO PRN (08:07)
[2021-07-16] MEDS: Ferrous Sulfate 325 MG Tab PO SCH ×2 (08:40→20:17)
[2021-07-16] MEDS: Acetaminophen 325 MG Tab PO SCH ×4 (10:31→20:17)
[2021-07-16] MEDS: Furosemide 20 MG Tab PO SCH (11:40)
[2021-07-16] MEDS: Calcium Carbonate 500 MG Tablet PO SCH (11:40)
[2021-07-16] MEDS: Docusate Sodium 100 MG Cap PO PRN (20:18)
[2021-07-17] MEDS: Levothyroxine 150 MCG Tab PO SCH (06:00)
[2021-07-17] MEDS: Furosemide 40 MG Tab PO SCH (07:50)
[2021-07-17] MEDS: metFORMIN 1,000 MG Tab PO SCH ×2 (07:50→17:30)
[2021-07-17] MEDS: Metoprolol Tartrate 50 MG Tab PO SCH (08:00)
[2021-07-17] MEDS: Gabapentin 300 MG Cap PO SCH ×2 (08:00→20:33)
[2021-07-17] MEDS: Allopurinol 300 MG Tab PO SCH (08:00)
[2021-07-17] MEDS: Acetaminophen 325 MG Tab PO SCH ×4 (08:01→20:34)
[2021-07-17] MEDS: amLODIPine 5 MG Tab PO SCH (08:01)
[2021-07-17] MEDS: Ferrous Sulfate 325 MG Tab PO SCH ×2 (08:02→20:33)
[2021-07-17] MEDS: Polyethylene Glycol 3350 Powder 17 GM Packet PO SCH (10:18)
[2021-07-17] MEDS: Furosemide 20 MG Tab PO SCH (12:57)
[2021-07-17] MEDS: Calcium Carbonate 500 MG Tablet PO SCH (12:57)
[2021-07-17] MEDS: Bisacodyl 5 MG Tab PO PRN (14:08)
[2021-07-17] MEDS ORDERED: Magnesium Citrate Solution 296 ML Bottle PO ONE (14:33)
[2021-07-17] MEDS: Docusate Sodium 100 MG Cap PO PRN (20:37)
[2021-07-18] MEDS: Levothyroxine 150 MCG Tab PO SCH (06:30)
[2021-07-18] MEDS: Gabapentin 300 MG Cap PO SCH ×2 (08:47→21:08)
[2021-07-18] MEDS: Polyethylene Glycol 3350 Powder 17 GM Packet PO SCH (08:48)
[2021-07-18] MEDS: Metoprolol Tartrate 50 MG Tab PO SCH (08:48)
[2021-07-18] MEDS: Furosemide 40 MG Tab PO SCH (08:49)
[2021-07-18] MEDS: metFORMIN 1,000 MG Tab PO SCH ×2 (08:50→17:07)
[2021-07-18] MEDS: Ferrous Sulfate 325 MG Tab PO SCH ×2 (08:51→21:08)
[2021-07-18] MEDS: amLODIPine 5 MG Tab PO SCH (08:51)
[2021-07-18] MEDS: Acetaminophen 325 MG Tab PO SCH ×4 (08:52→21:08)
[2021-07-18] MEDS: Allopurinol 300 MG Tab PO SCH (08:52)
[2021-07-18] MEDS ORDERED: Glycerin Adult 2 GM Supp RECTAL PRN (09:02)
[2021-07-18] MEDS: Furosemide 20 MG Tab PO SCH (11:15)
[2021-07-18] MEDS: Calcium Carbonate 500 MG Tablet PO SCH (11:16)
[2021-07-18] MEDS: Bisacodyl 5 MG Tab PO PRN (17:09)
[2021-07-19] MEDS: Levothyroxine 150 MCG Tab PO SCH (07:00)
[2021-07-19] MEDS: Gabapentin 300 MG Cap PO SCH ×2 (08:22→21:09)
[2021-07-19] MEDS: Acetaminophen 325 MG Tab PO SCH ×4 (08:22→21:07)
[2021-07-19] MEDS: Metoprolol Tartrate 50 MG Tab PO SCH (08:22)
[2021-07-19] MEDS: Furosemide 40 MG Tab PO SCH (08:23)
[2021-07-19] MEDS: Allopurinol 300 MG Tab PO SCH (08:23)
[2021-07-19] MEDS: metFORMIN 1,000 MG Tab PO SCH ×2 (08:24→17:18)
[2021-07-19] MEDS: amLODIPine 5 MG Tab PO SCH (08:26)
[2021-07-19] MEDS: Ferrous Sulfate 325 MG Tab PO SCH ×2 (08:26→21:09)
[2021-07-19] MEDS: Polyethylene Glycol 3350 Powder 17 GM Packet PO SCH (08:26)
[2021-07-19] MEDS: Calcium Carbonate 500 MG Tablet PO SCH (12:10)
[2021-07-19] MEDS: Furosemide 20 MG Tab PO SCH (12:11)
[2021-07-20] MEDS: Levothyroxine 150 MCG Tab PO SCH (06:22)
[2021-07-20] MEDS: metFORMIN 1,000 MG Tab PO SCH ×2 (07:52→17:31)
[2021-07-20] MEDS: Furosemide 40 MG Tab PO SCH (07:56)
[2021-07-20] MEDS: Ferrous Sulfate 325 MG Tab PO SCH ×2 (08:03→20:23)
[2021-07-20] MEDS: amLODIPine 5 MG Tab PO SCH (08:08)
[2021-07-20] MEDS: Polyethylene Glycol 3350 Powder 17 GM Packet PO SCH (08:08)
[2021-07-20] MEDS: Acetaminophen 325 MG Tab PO SCH ×4 (08:09→20:23)
[2021-07-20] MEDS: Allopurinol 300 MG Tab PO SCH (08:11)
[2021-07-20] MEDS: Gabapentin 300 MG Cap PO SCH ×2 (08:14→20:23)
[2021-07-20] MEDS: Metoprolol Tartrate 50 MG Tab PO SCH (08:20)
[2021-07-20] MEDS: Furosemide 20 MG Tab PO SCH (12:42)
[2021-07-20] MEDS: Calcium Carbonate 500 MG Tablet PO SCH (12:42)
[2021-07-21] MEDS: Levothyroxine 150 MCG Tab PO SCH (05:28)
[2021-07-21 06:24] VITALS: BP 148/66
[2021-07-21] MEDS: Polyethylene Glycol 3350 Powder 17 GM Packet PO SCH (08:00)
[2021-07-21] MEDS: Allopurinol 300 MG Tab PO SCH (08:00)
[2021-07-21] MEDS: Acetaminophen 325 MG Tab PO SCH (08:00)
[2021-07-21] MEDS: Metoprolol Tartrate 50 MG Tab PO SCH (08:00)
[2021-07-21] MEDS: metFORMIN 1,000 MG Tab PO SCH (08:00)
[2021-07-21] MEDS: Gabapentin 300 MG Cap PO SCH (08:01)
[2021-07-21] MEDS: amLODIPine 5 MG Tab PO SCH (08:01)
[2021-07-21] MEDS: Ferrous Sulfate 325 MG Tab PO SCH (08:01)
[2021-07-21] MEDS: Furosemide 40 MG Tab PO SCH (08:01)
[2021-07-21 08:02] VITALS: PULSE 67
== END 2021-07-21 09:15 | disposition home health service (06) | DRG 948 ==
LOC: FB.MS 13:45 → UNDOADMIN 13:45 → FB.MS 14:31
PROVIDERS: ADMIT Family Medicine; ATTEND Student in an Organized Health Care Education/Training Program
DX: R53.81 Other malaise (principal); S22.42XA Multiple fractures of ribs, left side, initial encounter for closed fracture; N39.0 Urinary tract infection, site not specified; M54.9 Dorsalgia, unspecified; G89.29 Other chronic pain; E11.9 Type 2 diabetes mellitus without complications; M10.9 Gout, unspecified; M47.812 Spondylosis without myelopathy or radiculopathy, cervical region; E66.9 Obesity, unspecified; I87.2 Venous insufficiency (chronic) (peripheral); M19.012 Primary osteoarthritis, left shoulder; H54.7 Unspecified visual loss; E78.00 Pure hypercholesterolemia, unspecified; I50.9 Heart failure, unspecified; M81.0 Age-related osteoporosis without current pathological fracture; K80.20 Calculus of gallbladder without cholecystitis without obstruction; Z66 Do not resuscitate; M54.6 Pain in thoracic spine; Z79.82 Long term (current) use of aspirin; I11.0 Hypertensive heart disease with heart failure; Z88.6 Allergy status to analgesic agent; Z88.1 Allergy status to other antibiotic agents; Z88.0 Allergy status to penicillin; Z79.890 Hormone replacement therapy; Z79.899 Other long term (current) drug therapy; Z79.84 Long term (current) use of oral hypoglycemic drugs; Z90.49 Acquired absence of other specified parts of digestive tract; Z90.710 Acquired absence of both cervix and uterus; I25.2 Old myocardial infarction; W19.XXXA Unspecified fall, initial encounter
CPT/HCPCS: 71101-LT; 82947; 94150; 97110-GP; 97116-GP; 97530-GO; 97530-GP; 97535-GO; A9270-GY

== ENCOUNTER 2021-08-04 14:09 | Observation (INO) | payer MEDICARE, BC ==
[2021-08-04] MEDS ORDERED: Aspirin 81 MG Tab.Chew PO STA (14:21)
[2021-08-04] MEDS ORDERED: Labetalol 20 MG/4 ML Syringe IVPUSH STA ×2 (14:21→15:15)
[2021-08-04] MEDS: Sodium Chloride 0.9% 10 ML Syringe FLUSH PRN ×2 (14:42→15:17)
[2021-08-04] MEDS ORDERED: Sodium Chloride 0.9% 10 ML Syringe FLUSH PRN (15:12)
[2021-08-04] MEDS ORDERED: amLODIPine 10 MG Tab PO STA (15:44)
[2021-08-04] MEDS: cefTRIAXone 1 GM Vial IVPUSH SCH (16:45)
[2021-08-04] MEDS ORDERED: Ondansetron 4 MG/2 ML SDV IV PRN (16:48)
[2021-08-04] MEDS ORDERED: Bisacodyl 5 MG Tab PO PRN ×2 (16:48→16:56)
[2021-08-04] MEDS ORDERED: Docusate Sodium 100 MG Cap *PTOM PO PRN (16:56)
[2021-08-04] MEDS ORDERED: Polyethylene Glycol 3350 Powder 17 GM Packet PO PRN (16:56)
[2021-08-04] MEDS ORDERED: Loperamide 2 MG Cap PO PRN (16:56)
[2021-08-04] MEDS ORDERED: metFORMIN 500 MG Tab PO SCH (18:00)
[2021-08-04] MEDS: Gabapentin 300 MG Cap *PTOM PO SCH (20:09)
[2021-08-04] MEDS: Enoxaparin 40 MG/0.4 ML Syringe SUBCUT SCH (20:09)
[2021-08-05] MEDS ORDERED: Metoprolol Succinate 50 MG Tab.ER PO SCH (09:00)
[2021-08-05] MEDS ORDERED: amLODIPine 5 MG Tab PO SCH (09:00)
[2021-08-05] MEDS ORDERED: Iopamidol 755 Mg/ML 100 ML Bottle IV ONE (09:01)
[2021-08-05] MEDS: METOPROLOL TARTRATE 50 MG PO SCH (10:05)
[2021-08-05] MEDS: Allopurinol 300 MG Tab *PTOM PO SCH (10:06)
[2021-08-05] MEDS: Gabapentin 300 MG Cap *PTOM PO SCH ×2 (10:07→20:54)
[2021-08-05] MEDS: amLODIPine 2.5 MG Tab *PTOM PO SCH (10:08)
[2021-08-05] MEDS: Levothyroxine 150 MCG Tab *PTOM PO SCH (10:08)
[2021-08-05] MEDS ORDERED: Furosemide 40 MG Tab PO SCH (12:00)
[2021-08-05] MEDS ORDERED: CALCIUM CARBONATE 500 MG PO SCH (12:00)
[2021-08-05] MEDS: cefTRIAXone 1 GM Vial IVPUSH SCH (15:55)
[2021-08-05] MEDS: Sodium Chloride 0.9% 10 ML Syringe FLUSH PRN (15:58)
[2021-08-05] MEDS: Enoxaparin 40 MG/0.4 ML Syringe SUBCUT SCH (20:55)
[2021-08-06] MEDS: Levothyroxine 150 MCG Tab *PTOM PO SCH (07:01)
[2021-08-06] MEDS: Gabapentin 300 MG Cap *PTOM PO SCH (09:25)
[2021-08-06] MEDS: amLODIPine 2.5 MG Tab *PTOM PO SCH (09:26)
[2021-08-06] MEDS: METOPROLOL TARTRATE 50 MG PO SCH (09:26)
[2021-08-06] MEDS: Allopurinol 300 MG Tab *PTOM PO SCH (09:26)
[2021-08-06 09:27] VITALS: BP 148/77; PULSE 80
== END 2021-08-06 12:00 | disposition home health service (06) ==
LOC: FB.ED 14:09 → FB.MS 18:57
PROVIDERS: ADMIT Emergency Medicine; ATTEND Family Medicine
DX: J20.9 Acute bronchitis, unspecified (principal); I16.9 Hypertensive crisis, unspecified; I10 Essential (primary) hypertension; E78.00 Pure hypercholesterolemia, unspecified; E11.9 Type 2 diabetes mellitus without complications; E66.9 Obesity, unspecified; M81.0 Age-related osteoporosis without current pathological fracture; J06.9 Acute upper respiratory infection, unspecified; I87.2 Venous insufficiency (chronic) (peripheral); Z20.822 Contact with and (suspected) exposure to COVID-19; Z88.8 Allergy status to other drugs, medicaments and biological substances; Z88.0 Allergy status to penicillin; Z88.5 Allergy status to narcotic agent; Z79.899 Other long term (current) drug therapy; Z79.84 Long term (current) use of oral hypoglycemic drugs; Z98.890 Other specified postprocedural states
CPT/HCPCS: 36415; 71045; 71275; 80048; 80053; 81001; 83605; 83880; 84484; 85025; 85610; 85730; 87040; 87086; 93005; 93010; 94150; 96372; 96374; 96375; 96376; 99284; 99285-25; A9270-GY; G0378; J0696; J1650; J3490; Q9967; U0002

== ENCOUNTER 2021-09-18 11:03 | Emergency (ER) | payer MEDICARE, BC ==
[2021-09-18] MEDS ORDERED: Lactated Ringers 1,000 ML IV ONE (12:39)
[2021-09-18] MEDS ORDERED: Glucagon,Human Recombinant 1 MG Vial IM PRN ×2 (12:39→14:28)
[2021-09-18] MEDS ORDERED: Insulin Regular, Human 100 Units/ML 3 ML Vial SUBCUT ONE ×2 (12:39→14:28)
[2021-09-18] MEDS ORDERED: 50% Dextrose in Water 50 ML Syringe IVPUSH PRN ×2 (12:39→14:28)
[2021-09-18 20:26] VITALS: BP 122/54; PULSE 86
== END 2021-09-18 15:30 | disposition home or self-care (01) ==
LOC: FB.ED 11:03
DX: E11.65 Type 2 diabetes mellitus with hyperglycemia (principal); I10 Essential (primary) hypertension; E66.9 Obesity, unspecified; Z68.41 Body mass index [BMI] 40.0-44.9, adult; Z90.49 Acquired absence of other specified parts of digestive tract; Z90.710 Acquired absence of both cervix and uterus; Z79.899 Other long term (current) drug therapy; Z88.5 Allergy status to narcotic agent; Z88.1 Allergy status to other antibiotic agents; Z88.0 Allergy status to penicillin; Z88.6 Allergy status to analgesic agent; Z79.84 Long term (current) use of oral hypoglycemic drugs
CPT/HCPCS: 36415; 80048; 81001; 82947; 84484; 85027; 96360; 99284-25; J1815-GY; J7120

== ENCOUNTER 2022-06-27 11:00 | Inpatient (IN) | payer MEDICARE, BC ==
[2022-06-27 12:32] LABS: CORONAVIRUS COVID-19 NAA NEGATIVE (NEGATIVE)
[2022-06-27 12:34] LABS: ESTIMATED GFR 40 mL/min (>60)
[2022-06-27] MEDS: cefTRIAXone 1 GM Vial IVPUSH SCH (14:45)
[2022-06-27] MEDS ORDERED: Azithromycin 250 MG Tab PO SCH (14:45)
[2022-06-27] MEDS ORDERED: Melatonin 3 MG Tab PO PRN (17:11)
[2022-06-27] MEDS ORDERED: Glucagon,Human Recombinant 1 MG Vial IM PRN (17:45)
[2022-06-27] MEDS ORDERED: 50% Dextrose in Water 50 ML Syringe IVPUSH PRN (17:45)
[2022-06-27] MEDS: Insulin Lispro 100 Unit/ML 3 ML KwikPen SUBCUT SCH (18:10)
[2022-06-27] MEDS ORDERED: Clopidogrel 75 MG Tab PO ONE (18:33)
[2022-06-27] MEDS ORDERED: Heparin Sodium 5,000 Units/ML Vial IVPUSH ONE (18:37)
[2022-06-27] MEDS ORDERED: Heparin Sodium/0.45% NaCl 25,000 UNITS/500 ML BAG IV SCH (18:45)
[2022-06-27] MEDS: Gabapentin 300 MG Cap PO SCH (20:23)
[2022-06-28 07:21] LABS: ESTIMATED GFR 54 mL/min (>60)
[2022-06-28] MEDS ORDERED: Insulin Lispro 100 Unit/ML 3 ML KwikPen SUBCUT ONE (08:23)
[2022-06-28] MEDS: Insulin Lispro 100 Unit/ML 3 ML KwikPen SUBCUT SCH ×2 (08:25→11:47)
[2022-06-28] MEDS: Gabapentin 300 MG Cap PO SCH (08:28)
[2022-06-28] MEDS ORDERED: Allopurinol 300 MG Tab PO SCH (09:00)
[2022-06-28] MEDS ORDERED: Metoprolol Succinate 50 MG Tab.ER PO SCH (09:00)
[2022-06-28] MEDS ORDERED: Furosemide 40 MG Tab PO SCH (09:00)
[2022-06-28] MEDS ORDERED: Clopidogrel 75 MG Tab PO SCH (09:00)
[2022-06-28] MEDS ORDERED: amLODIPine 2.5 MG Tab PO SCH (09:00)
[2022-06-28] MEDS ORDERED: Levothyroxine 150 MCG Tab PO SCH (09:00)
[2022-06-28] MEDS ORDERED: Ondansetron 4 MG/2 ML SDV IVPUSH PRN (09:07)
[2022-06-28] MEDS ORDERED: Morphine 2 MG/ML SYRINGE IVPUSH PRN (09:08)
[2022-06-28] MEDS ORDERED: Metolazone 2.5 MG Tab PO SCH (10:45)
[2022-06-28] MEDS ORDERED: Nitroglycerin 0.4 MG Tab.SL SL PRN (10:50)
[2022-06-28] MEDS ORDERED: Enoxaparin 100 MG/1 ML Syringe SUBCUT SCH (11:00)
[2022-06-28] MEDS: Sodium Chloride 0.9% 10 ML Syringe FLUSH PRN ×2 (11:26→11:31)
[2022-06-28] MEDS ORDERED: Furosemide 40 MG/4 ML VIAL IVPUSH SCH (11:30)
[2022-06-28] MEDS ORDERED: Furosemide 20 MG Tab PO SCH (12:00)
[2022-06-28] MEDS: cefTRIAXone 1 GM Vial IVPUSH SCH (12:45)
[2022-06-28] MEDS ORDERED: Azithromycin 500 MG Tab PO SCH (14:45)
[2022-06-28 18:38] VITALS: BP 105/56; PULSE 86
== END 2022-06-28 12:45 | DRG 280 ==
LOC: FB.ED 11:00 → FB.MS 15:00 → UNDOADMOB 15:26 → FB.MS 15:26 → OBSVTOIN 17:43
PROVIDERS: ADMIT Student in an Organized Health Care Education/Training Program; ATTEND Student in an Organized Health Care Education/Training Program
DX: I21.4 Non-ST elevation (NSTEMI) myocardial infarction (principal); J18.9 Pneumonia, unspecified organism; E66.9 Obesity, unspecified; R79.82 Elevated C-reactive protein (CRP); E11.9 Type 2 diabetes mellitus without complications; Z51.5 Encounter for palliative care; I10 Essential (primary) hypertension; E78.5 Hyperlipidemia, unspecified; E03.9 Hypothyroidism, unspecified; E78.00 Pure hypercholesterolemia, unspecified; R47.81 Slurred speech; W18.30XA Fall on same level, unspecified, initial encounter; Z79.84 Long term (current) use of oral hypoglycemic drugs; E88.09 Other disorders of plasma-protein metabolism, not elsewhere classified; E89.0 Postprocedural hypothyroidism; Z20.822 Contact with and (suspected) exposure to COVID-19; M81.0 Age-related osteoporosis without current pathological fracture; R09.02 Hypoxemia; M10.9 Gout, unspecified; Z79.4 Long term (current) use of insulin; Z79.899 Other long term (current) drug therapy; Z86.718 Personal history of other venous thrombosis and embolism; Z79.890 Hormone replacement therapy; Z90.89 Acquired absence of other organs; Z90.49 Acquired absence of other specified parts of digestive tract; Z90.710 Acquired absence of both cervix and uterus; Z98.890 Other specified postprocedural states; Z90.5 Acquired absence of kidney; Z90.721 Acquired absence of ovaries, unilateral; Z98.49 Cataract extraction status, unspecified eye; Z83.3 Family history of diabetes mellitus; Z82.61 Family history of arthritis; Z82.49 Family history of ischemic heart disease and other diseases of the circulatory system; Z68.34 Body mass index [BMI] 34.0-34.9, adult; Z88.1 Allergy status to other antibiotic agents; Z88.0 Allergy status to penicillin; Z88.6 Allergy status to analgesic agent; Z88.5 Allergy status to narcotic agent; Z88.8 Allergy status to other drugs, medicaments and biological substances
CPT/HCPCS: 0241U; 36415; 51702; 70450; 71046; 80048; 80053; 81001; 82947; 83605; 83735; 83880; 84484; 85025; 85730; 86140; 87040; 87086; 87088; 87186; 93005; 93010; 99223; 99239; 99285; A9270-GY; J0696; J1644; J1815; J1940; J2270; J3490